=== PATIENT | male | born 1945 | race Caucasian/White ===

== ENCOUNTER 2017-07-01 19:17 | Emergency (ER) | payer OTHER, BC ==
[~2017-07-01] VITALS: Ht 175.3 cm; Wt 84.2 kg
[~2017-07-01 19:17] MED LIST: NOHOMEMEDS
[2017-07-01] MEDS ORDERED: TRAMADOL HCL50 MG PO (20:53)
[2017-07-01] MEDS ORDERED: KEFLEX500 MG PO (20:53)
[2017-07-01 21:23] VITALS: BP 164/93
== END 2017-07-01 21:41 | disposition home or self-care (01) ==
LOC: EME 19:17
DX: S92.422B Displaced fracture of distal phalanx of left great toe, initial encounter for open fracture (principal); W22.8XXA Striking against or struck by other objects, initial encounter; Z23 Encounter for immunization
CPT/HCPCS: 73630; 99281; 99284